=== PATIENT | female | born 1970 | race Caucasian/White ===

== ENCOUNTER 2017-11-15 10:28 | Emergency (ER) | payer OTHER ==
--- NOTE | 2017-11-15 10:41 | EDM.PDOC ---
ED HPI GENERAL MEDICAL PROBLEM - General Stated Complaint: FALL Time Seen by Provider: 11/15/17 10:36 - History of Present Illness INITIAL COMMENTS - FREE TEXT/NARRATIVE: HISTORY AND PHYSICAL: History of present illness: Patient 46-year-old white female presents status post right foot and ankle injury that occurred when she stepped off the porch she did hit her head there was no loss of consciousness she denies other trauma or concern she is not on blood thinners or antiplatelet therapy she's had no nausea no vomiting no neck pain no chest or abdominal pain or trauma other concerns she states this is strictly a mechanical fall Review of systems: As per history of present illness and below otherwise all systems reviewed and negative. Past medical history: As per history of present illness and as reviewed below otherwise noncontributory. Surgical history: As per history of present illness and as reviewed below otherwise noncontributory. Social history: No reported history of drug or alcohol abuse. Family history: As per history of present illness and as reviewed below otherwise noncontributory. Physical exam: HEENT: Atraumatic, normocephalic, pupils reactive, negative for conjunctival pallor or scleral icterus, mucous membranes moist, throat clear, neck supple, nontender, trachea midline. Lungs: Clear to auscultation, breath sounds equal bilaterally, chest nontender. Heart: S1S2, regular, negative for clicks, rubs, or JVD. Abdomen: Soft, nondistended, nontender. Negative for masses or hepatosplenomegaly. Negative for costovertebral tenderness. Pelvis: Stable nontender. Genitourinary: Deferred. Rectal: Deferred. Extremities: Patient has tenderness swelling in the region of the lateral malleolus of her right ankle Achilles tendon is intact there is no crepitation or point tenderness no proximal fibula tenderness Neuro: Awake, alert, oriented. Cranial nerves II through XII unremarkable. Cerebellum unremarkable. Motor and sensory unremarkable throughout. Exam nonfocal. Diagnostics: X-ray right foot/ankle Therapeutics: To be determined Impression: #1 acute right foot/ankle injury #2 minor head injury #3 observation status post fall Definitive disposition and diagnosis as appropriate pending reevaluation and review of above. - Related Data Allergies Allergy/AdvReac Type Severity Reaction Status Date / Time amoxicillin Allergy does not Verified 11/15/17 10:49 recall Home Meds: Home Meds . [No Known Home Meds] 11/15/17 [History] ED ROS GENERAL - Review of Systems Review Of Systems: ROS reveals no pertinent complaints other than HPI. ED EXAM, GENERAL - Physical Exam Exam: See Below (See dictation) Course - Vital Signs Last Recorded V/S: Last Vital Signs Temp 35.9 C 11/15/17 10:46 Pulse 99 11/15/17 10:46 Resp 12 11/15/17 10:46 BP 144/76 H 11/15/17 10:46 Pulse Ox 94 L 11/15/17 10:46 - Orders/Labs/Meds Orders: Active Orders 24 hr Category Date Time Status Ankle Min 3V Rt [CR] Stat Exams 11/15/17 11:24 Ordered Foot 2V Rt [CR] Stat Exams 11/15/17 11:24 Ordered Meds: Medications Discontinued Medications Generic Name Dose Route Start Last Admin Trade Name Freq PRN Reason Stop Dose Admin Hydrocodone Bitart/Acetaminophen 1 tab 11/15/17 12:14 [place] 325-10 Mg PO 11/15/17 12:15 ONETIME ONE Departure - Departure Time of Disposition: 12:15 Disposition: Home, Self-Care 01 Condition: Good Clinical Impression: Ankle fracture - Discharge Information Referrals: PCP,None [Primary Care Provider] - Additional Instructions: The following information is given to patients seen in the emergency department who are being discharged to home. This information is to outline your options for follow-up care. We provide all patients seen in our emergency department with a follow-up referral. The need for follow-up, as well as the timing and circumstances, are variable depending upon the specifics of your emergency department visit. If you don't have a primary care physician on staff, we will provide you with a referral. We always advise you to contact your personal physician following an emergency department visit to inform them of the circumstance of the visit and for follow-up with them and/or the need for any referrals to a consulting specialist. The emergency department will also refer you to a specialist when appropriate. This referral assures that you have the opportunity for followup care with a specialist. All of these measure are taken in an effort to provide you with optimal care, which includes your followup. Under all circumstances we always encourage you to contact your private physician who remains a resource for coordinating your care. When calling for followup care, please make the office aware that this follow-up is from your recent emergency room visit. If for any reason you are refused follow-up, please contact the [facility] emergency department at and asked to speak to the emergency department charge nurse. [facility] - [facility] Professional [address], [address] [place] [address] Posterior mold crutches as directed hydrocodone as prescribed call to schedule point with orthopedic clinic above return as needed as discussed - My Orders Last 24 Hours: My Active Orders 11/15/17 11:24 Ankle Min 3V Rt [CR] Stat Foot 2V Rt [CR] Stat - Assessment/Plan Last 24 Hours: My Active Orders 11/15/17 11:24 Ankle Min 3V Rt [CR] Stat Foot 2V Rt [CR] Stat
[2017-11-15] MEDS ORDERED: Acetaminophen/HYDROcodone 325-10 MG Tab PO ONE (12:14)
--- NOTE | 2017-11-15 12:58 | CR ---
EXAMINATION: Right ankle and right foot HISTORY: Pain COMPARISON: None TECHNIQUE: 3 views of the right ankle and 2 views of the right foot FINDINGS: There is an oblique nondisplaced distal fibular fracture identified with overlying soft tis nancy swelling. Ankle mortise and talar dome appear grossly preserved. Bone mineralization is normal. E jaguar osteoarthritic changes noted at the first MTP joint. IMPRESSION: Oblique nondisplaced distal fibular fracture.
== END 2017-11-15 12:43 | disposition home or self-care (01) ==
LOC: MW.ED 10:28
DX: S82.831A Other fracture of upper and lower end of right fibula, initial encounter for closed fracture (principal); S09.90XA Unspecified injury of head, initial encounter; Z88.1 Allergy status to other antibiotic agents; W19.XXXA Unspecified fall, initial encounter
CPT/HCPCS: 73610; 73620; 99283; A9270; 99282

== ENCOUNTER 2017-11-20 12:25 | Day surgery (SDC) | payer OTHER ==
[~2017-11-20 12:25] MED LIST: Acetaminophen/HYDROcodone 325-5 MG Tab PO PRN; Clindamycin Phosphate in D5W 900 MG in Premix Bag 1 BAG IV SCH; Lactated Ringers 1,000 ML IV SCH
[2017-11-20] MEDS ORDERED: Lidocaine 2% 5 ML SDV ONE (13:00)
[2017-11-20] MEDS ORDERED: Midazolam 1 MG/ML 2 ML SDV ONE (13:00)
[2017-11-20] MEDS ORDERED: Propofol 200 MG/20 ML SDV ONE (13:00)
[2017-11-20] MEDS ORDERED: Ketorolac 30 MG/ML SDV ONE (13:01)
[2017-11-20] MEDS ORDERED: Ondansetron 4 MG/2 ML SDV ONE (13:01)
[2017-11-20] MEDS ORDERED: HYDROmorphone 2 MG/ML Syringe ONE (13:01)
[2017-11-20] MEDS ORDERED: fentaNYL 250 MCG/5 ML SDV ONE (13:01)
--- NOTE | 2017-11-20 13:01 | PCM.PREANE ---
Preanesthetic Assessment - Anesthesia/Transfusion/Family Hx Anesthesia History: Prior Anesthesia Without Reaction Other Type of Anesthesia Reaction Comment: states gets emotional when waking up after anesthesia Family History of Anesthesia Reaction: No Transfusion History: No Prior Transfusion(s) - Review of Systems General: No Symptoms Pulmonary: No Symptoms Cardiovascular: No Symptoms Gastrointestinal: No Symptoms Neurological: No Symptoms Other: Reports: None - Physical Assessment NPO Status Date: 11/19/17 Height: 1.7 m Weight: 99.79 kg ASA Class: 2 Mental Status: Alert & Oriented x3 Airway Class: Mallampati = 2 Dentition: Reports: Broken Tooth/Teeth ROM/Head Extension: Full Lungs: Clear to Auscultation, Normal Respiratory Effort Cardiovascular: Regular Rate, Regular Rhythm - Allergies Allergies/Adverse Reactions: Allergies Allergy/AdvReac Type Severity Reaction Status Date / Time amoxicillin Allergy Rash Verified 11/19/17 11:58 - Anesthesia Plan Pre-Op Medication Ordered: None - Acknowledgements Anesthesia Type Planned: General Anesthesia Pt an Appropriate Candidate for the Planned Anesthesia: Yes Alternatives and Risks of Anesthesia Discussed w Pt/Guardian: Yes Pt/Guardian Understands and Agrees with Anesthesia Plan: Yes Additional Comments: PMH smoker, plan: GA-LMA PreAnesthesia Questionnaire HEENT History: Reports: None Gastrointestinal History: Reports: Other (See Below) Other Gastrointestinal History: occasional heartburn Genitourinary History: Reports: None 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: Musculoskeletal History: Reports: Other (See Below) Other Musculoskeletal History: presently has fx rt distal fibula Endocrine/Metabolic History: Reports: Obesity/BMI 30+ Dermatologic History: Reports: Psoriasis - Infectious Disease History Infectious Disease History: Reports: Chicken Pox, Mumps - Past Surgical History Head Surgeries/Procedures: Reports: None HEENT Surgical History: Reports: Oral Surgery Other GI Surgeries/Procedures: exploratory laparotomy Other Female Surgeries/Procedures: laparoscopy Male Surgical History: Reports: Other (See Below) - SUBSTANCE USE Smoking Status *Q: Current Every Day Smoker Tobacco Use Within Last Twelve Months: Cigarettes Days Per Week of Alcohol Use: 4 Number of Drinks Per Day: 2 Total Drinks Per Week: 8 Recreational Drug Use History: Yes Recreational Drug Type: Reports: Marijuana/Hashish, Methamphetamine - HOME MEDS Home Medications: Home Meds Hydrocodone/Acetaminophen [Hydrocodon-Acetaminoph 7.5-325] 1 tab PO ASDIRECTED PRN 11/19/17 [History] - CURRENT (IN HOUSE) MEDS Current Meds: Current Medications Hydrocodone Bitart/Acetaminophen ([place] 325-5 Mg) 1 - 2 tab PO Q4H PRN PRN Reason: Pain Lactated Ringer's (Ringers, Lactated) 1,000 mls @ 100 mls/hr IV ASDIRECTED VIOLET Clindamycin Phosphate 900 mg/ (Premix) 50 mls @ 100 mls/hr IV ONCALL VIOLET
[2017-11-20] MEDS ORDERED: HYDROmorphone 2 MG/ML Syringe IVPUSH ONE (14:45)
--- NOTE | 2017-11-20 15:24 | PCM.OPNOTE ---
- General Post-Op/Procedure Note Date of Surgery/Procedure: 11/20/17 Operative Procedure(s): ORIF L lateral malleolus Post-Op Diagnosis: L distal fibula fracture, unstable Anesthesia Technique: General LMA Primary Surgeon: Payal Mohan Grease Monkey: Mery Johnson in mLs: 10 Condition: Good Free Text/Narrative:: tt=29 min #[id number]
[2017-11-20] MEDS: fentaNYL 100 MCG/2 ML SDV IVPUSH PRN ×2 (15:59→16:06)
--- NOTE | 2017-11-20 16:01 | PCM.POSTAN ---
POST ANESTHESIA ASSESSMENT - MENTAL STATUS Mental Status: Alert, Oriented - RESPIRATORY Respiratory Status: Respiratory Rate WNL, Airway Patent, O2 Saturation Stable - CARDIOVASCULAR CV Status: Pulse Rate WNL, Blood Pressure Stable - GASTROINTESTINAL GI Status: No Symptoms - POST OP HYDRATION Hydration Status: Adequate & Stable
--- NOTE | 2017-11-20 16:38 | PCM48HPAN ---
Post Anesthesia Note - EVALUATION WITHIN 48HRS OF ANESTHETIC Vital Signs in Normal Range: Yes Patient Participated in Evaluation: Yes Respiratory Function Stable: Yes Airway Patent: Yes Cardiovascular Function Stable: Yes Hydration Status Stable: Yes Pain Control Satisfactory: Yes Nausea and Vomiting Control Satisfactory: Yes Mental Status Recovered: Yes
--- NOTE | 2017-11-20 20:53 | OR ---
SURGEON: Payal Mohan MD DATE OF PROCEDURE: 11/20/2017 PREOPERATIVE DIAGNOSIS: Left distal fibula fracture, unstable. POSTOPERATIVE DIAGNOSIS: Left distal fibula fracture, unstable. PROCEDURE: Open reduction and internal fixation of left distal fibula. PLANT AND EQUIPMENT WORKER: Mery Johnson PA-C. ANESTHESIA: General. ESTIMATED BLOOD LOSS: 10 mL. TOURNIQUET TIME: 29 minutes. COMPLICATIONS: None. DVT PROPHYLAXIS: PAS boot to the nonoperative leg. IMPLANTS USED: [place] four hole distal fibula plate with combination of 3.5 mm locking and nonlocking screws. BRIEF HISTORY: Loretta is a 47-year-old female, who sustained an injury to her left ankle after a fall on the ice. X-rays showed a fracture of the distal fibula. The gravity stress view did show widening of the ankle mortise. Due to the unstable nature of the injury, I did recommend surgical intervention. The risks and goals of procedure were discussed with the patient and were documented preoperatively. She agreed to proceed. DESCRIPTION OF PROCEDURE: The patient was properly identified and brought to the operating room. She was transferred from the OR cart and placed on the operating table in a supine position. General anesthesia was administered. After adequate anesthesia was obtained, a well-padded tourniquet was applied to the left lower extremity. The left lower extremity was then prepped in standard fashion using ChloraPrep solution. It was then sterilely draped. A time-out was performed to ensure correct site and procedure. Preoperative antibiotics were given. The surgical site had been marked preoperatively. An Esmarch was used to exsanguinate the left lower extremity and the tourniquet was inflated to 250 mmHg. An incision was made over the lateral aspect of the ankle. Subcutaneous tissues were incised down to level of the bone. Care was taken to look for the superficial peroneal nerve, however, this was not encountered. The fracture was identified. This was slightly oblique in nature. It was held open and copiously irrigated to remove the fracture hematoma. A bone reduction clamp was then used to reduce the fracture and hold it in position. An interfragmentary screw was then placed in standard lag fashion. This provided good provisional fixation for the fracture. The distal fibula plate was then contoured to the bone. It was felt that a four hole would give us adequate fixation proximally. 3.5 mm locking screws were used distally and 3.5 mm nonlocking screws were used proximally. I did use a 3.5 mm nonlocking screw at the distal most hole to help contour the plate better to the bone. It had good purchase within the bone and I elected to leave it in place. I did leave the 2 screws open over the fracture site as there was some comminution and I did not feel that there would be adequate screw purchase. Final C-arm images confirmed acceptable placement of the plate and screws. The ankle mortise was symmetric. An external rotation stress view under live fluoroscopy did not show any widening of the ankle mortise or syndesmosis. I also placed a bone hook over the distal fibula and pulled laterally under live fluoroscopy. No widening of the syndesmosis was noted. The wounds were then copiously irrigated with saline solution. The deep tissues were closed with 0 Vicryl. 2-0 Monocryl was used to close the subcutaneous tissues and the skin was closed with kavon. Tourniquet was deflated prior to final wound closure. No significant bleeding was noted. Xeroform gauze was placed over the wound and bulky dressing was applied. She was then placed in a well-padded posterior splint with medial and lateral stabilizing slabs. She was awakened from her anesthetic and transferred back to the operating room cart. She was brought to recovery room in stable condition. All needle and sponge counts were correct. MAGALY / LIZZY /[id number]
--- NOTE | 2017-11-21 09:58 | CR ---
EXAMINATION: Right ankle HISTORY: Fracture COMPARISON: 11/19/2017 TECHNIQUE: 5 fluoroscopic images provided FINDINGS/IMPRESSION: Operative control films demonstrate screw and plate fixation of a distal fibular fracture.
--- NOTE | 2017-12-13 07:41 | OR ---
SURGEON: Payal Mohan MD DATE OF PROCEDURE: 11/20/2017 ADDENDUM: Addendum to an operative report that was dictated on 11/20/2017. The operative note was dictated as a left-sided fracture in error. The actual surgery and procedure were performed on the right distal fibula. MAGALY / LIZZY /[id number]
== END 2017-11-20 17:55 | disposition home or self-care (01) ==
LOC: MW.SDS 12:25
PROVIDERS: ATTEND Orthopaedic Surgery
DX: S82.831A Other fracture of upper and lower end of right fibula, initial encounter for closed fracture (principal); Z88.1 Allergy status to other antibiotic agents; Z91.018 Allergy to other foods; Z79.899 Other long term (current) drug therapy; F17.210 Nicotine dependence, cigarettes, uncomplicated; W18.31XA Fall on same level due to stepping on an object, initial encounter
CPT/HCPCS: 27792; 76000; 81025; A9270; C1713; J1170; J1885; J2250; J2405; J3010; J7120; 01480; J2704

== ENCOUNTER 2017-11-23 09:35 | Emergency (ER) | payer OTHER ==
--- NOTE | 2017-11-23 09:56 | EDM.PDOC ---
ED HPI GENERAL MEDICAL PROBLEM - General Chief Complaint: Lower Extremity Injury/Pain Stated Complaint: RT FOOT HURTS Time Seen by Provider: 11/23/17 09:45 - History of Present Illness INITIAL COMMENTS - FREE TEXT/NARRATIVE: HISTORY AND PHYSICAL: History of present illness: Patient's 47-year-old female status post right ankle surgery comes in with pain and discomfort since last night and feels that her splint may be too tight. She states she has been unable to sleep secondary to pain. She denies any new trauma or other concern states she has been compliant with staying off keeping it elevated and her pain medicine Review of systems: As per history of present illness and below otherwise all systems reviewed and negative. Past medical history: As per history of present illness and as reviewed below otherwise noncontributory. Surgical history: As per history of present illness and as reviewed below otherwise noncontributory. Social history: No reported history of drug or alcohol abuse. Family history: As per history of present illness and as reviewed below otherwise noncontributory. Physical exam: HEENT: Atraumatic, normocephalic, pupils reactive, negative for conjunctival pallor or scleral icterus, mucous membranes moist, throat clear, neck supple, nontender, trachea midline. Lungs: Clear to auscultation, breath sounds equal bilaterally, chest nontender. Heart: S1S2, regular, negative for clicks, rubs, or JVD. Abdomen: Soft, nondistended, nontender. Negative for masses or hepatosplenomegaly. Negative for costovertebral tenderness. Pelvis: Stable nontender. Genitourinary: Deferred. Rectal: Deferred. Extremities: Mold noted right lower extremity Ant wrap was removed anterior component of splint exposed underlying skin without breakdown or neurovascular changes splint is noted to be firmly in place. Neuro: Awake, alert, oriented. Cranial nerves II through XII unremarkable. Cerebellum unremarkable. Motor and sensory unremarkable throughout. Exam nonfocal. Diagnostics: None Therapeutics: Splint was removed wound is well in appearance neurovascular exams unremarkable reapplication of a posterior mold was applied patient has marked improvement of symptoms Impression: #1 postoperative pain Definitive disposition and diagnosis as appropriate pending reevaluation and review of above. 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: Musculoskeletal History: Reports: Other (See Below) Other Musculoskeletal History: presently has fx rt distal fibula Endocrine/Metabolic History: Reports: Obesity/BMI 30+ Dermatologic History: Reports: Psoriasis - Infectious Disease History Infectious Disease History: Reports: Chicken Pox, Mumps - Past Surgical History Head Surgeries/Procedures: Reports: None HEENT Surgical History: Reports: Oral Surgery Other GI Surgeries/Procedures: exploratory laparotomy Other Female Surgeries/Procedures: laparoscopy Male Surgical History: Reports: Other (See Below) Social & Family History - Tobacco Use Smoking Status *Q: Current Every Day Smoker Years of Tobacco use: 30 Packs/Tins Daily: 0.5 - Caffeine Use Caffeine Use: Reports: Coffee, Energy Drinks, Soda, Tea - Alcohol Use Days Per Week of Alcohol Use: 4 Number of Drinks Per Day: 2 Total Drinks Per Week: 8 - Recreational Drug Use Recreational Drug Use: Yes Drug Use in Last 12 Months: Yes Recreational Drug Type: Reports: Marijuana/Hashish, Methamphetamine Recreational Drug Use Frequency: Not Used In Over 6 Months Review of Systems - Review of Systems Review Of Systems: ROS reveals no pertinent complaints other than HPI. ED EXAM, GENERAL - Physical Exam Exam: See Below (See dictation) Course - Vital Signs Last Recorded V/S: Last Vital Signs Temp 35.8 C 11/23/17 09:46 Pulse 99 11/23/17 09:46 Resp 20 11/23/17 09:46 BP 196/104 H 11/23/17 09:46 Pulse Ox 95 11/23/17 09:46 Departure - Departure Time of Disposition: 10:49 Disposition: Home, Self-Care 01 Condition: Good Clinical Impression: Postoperative pain of extremity, Encounter for medical screening examination - Discharge Information Referrals: PCP,None [Primary Care Provider] - Forms: ED Department Discharge Additional Instructions: The following information is given to patients seen in the emergency department who are being discharged to home. This information is to outline your options for follow-up care. We provide all patients seen in our emergency department with a follow-up referral. The need for follow-up, as well as the timing and circumstances, are variable depending upon the specifics of your emergency department visit. If you don't have a primary care physician on staff, we will provide you with a referral. We always advise you to contact your personal physician following an emergency department visit to inform them of the circumstance of the visit and for follow-up with them and/or the need for any referrals to a consulting specialist. The emergency department will also refer you to a specialist when appropriate. This referral assures that you have the opportunity for followup care with a specialist. All of these measure are taken in an effort to provide you with optimal care, which includes your followup. Under all circumstances we always encourage you to contact your private physician who remains a resource for coordinating your care. When calling for followup care, please make the office aware that this follow-up is from your recent emergency room visit. If for any reason you are refused follow-up, please contact the [facility] emergency department at and asked to speak to the emergency department charge nurse. [facility] - Orthopedic Clinic Professional Building [address] [place] [address], [address] [place] [address] Follow-up orthopedic clinic call for appointment and reevaluation continue pain medication immobilization and elevation as discussed return as needed as discussed
== END 2017-11-23 11:27 | disposition home or self-care (01) ==
LOC: MW.ED 09:35
DX: M25.571 Pain in right ankle and joints of right foot (principal); G89.18 Other acute postprocedural pain; F17.210 Nicotine dependence, cigarettes, uncomplicated; Z88.1 Allergy status to other antibiotic agents
CPT/HCPCS: 99283

== ENCOUNTER 2018-03-11 11:59 | Emergency (ER) | payer OTHER ==
--- NOTE | 2018-03-11 12:48 | EDM.PDOC ---
ED HPI GENERAL MEDICAL PROBLEM - General Chief Complaint: ENT Problem Stated Complaint: LT EAR HURTS Time Seen by Provider: 03/11/18 12:43 Source of Information: Reports: Patient History Limitations: Reports: No Limitations - History of Present Illness INITIAL COMMENTS - FREE TEXT/NARRATIVE: History of present illness: []Patient has a history of psoriasis in her ears and she thinks she scratched her and it became infected on her left. She has severe pain denies any fevers or chills or any other symptoms Review of systems: As per history of present illness and below otherwise all systems reviewed and negative. Past medical history: As per history of present illness and as reviewed below otherwise noncontributory. Surgical history: As per history of present illness and as reviewed below otherwise noncontributory. Social history: No reported history of drug or alcohol abuse. Family history: As per history of present illness and as reviewed below otherwise noncontributory. Physical exam: General: Well developed, well nourished in NAD HEENT: Atraumatic, normocephalic, pupils reactive, negative for conjunctival pallor or scleral icterus, mucous membranes moist, throat clear, neck supple, nontender, trachea midline. Left TM with erythema and psoriasis rash inside the EAC without signs of infection Lungs: Clear to auscultation, breath sounds equal bilaterally, chest nontender. Heart: S1S2, regular, negative for clicks, rubs, or JVD. Abdomen: Soft, nondistended, nontender. Negative for masses or hepatosplenomegaly. Negative for costovertebral tenderness. Pelvis: Stable nontender. Genitourinary: Deferred. Rectal: Deferred. Extremities: Atraumatic, negative for cords or calf pain. Neurovascular unremarkable. Neuro: Awake, alert, oriented. Cranial nerves II through XII unremarkable. Cerebellum unremarkable. Motor and sensory unremarkable throughout. Exam nonfocal. Diagnostics: [] Therapeutics: []Motrin Impression: []Left otitis media Plan: []Z-Donovan Definitive disposition and diagnosis as appropriate pending reevaluation and review of above. 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: Musculoskeletal History: Reports: Other (See Below) Other Musculoskeletal History: presently has fx rt distal fibula Endocrine/Metabolic History: Reports: Obesity/BMI 30+ Dermatologic History: Reports: Psoriasis - Infectious Disease History Infectious Disease History: Reports: Chicken Pox - Past Surgical History Head Surgeries/Procedures: Reports: None HEENT Surgical History: Reports: Oral Surgery Other GI Surgeries/Procedures: exploratory laparotomy Other Female Surgeries/Procedures: laparoscopy Social & Family History - Family History Family Medical History: Noncontributory - Tobacco Use Smoking Status *Q: Current Every Day Smoker Years of Tobacco use: 30 Packs/Tins Daily: 1 - Caffeine Use Caffeine Use: Reports: Energy Drinks Other Caffeine Use: occasional Caffeine Use Comment: 1 cup per day - Recreational Drug Use Recreational Drug Use: No ED ROS ENT - Review of Systems Review Of Systems: See Below (See history of present illness) ED EXAM, ENT - Physical Exam Exam: See Below (See history of present illness) Course - Vital Signs Last Recorded V/S: Last Vital Signs Temp 97.1 F 03/11/18 13:00 Pulse 108 H 03/11/18 13:00 Resp 18 03/11/18 13:00 BP 133/101 H 03/11/18 13:00 Pulse Ox 98 03/11/18 13:00 - Orders/Labs/Meds Meds: Medications Discontinued Medications Generic Name Dose Route Start Last Admin Trade Name Bony PRN Reason Stop Dose Admin Ibuprofen 800 mg 03/11/18 12:54 03/11/18 12:59 Motrin PO 03/11/18 12:55 800 mg ONETIME ONE Administration Departure - Departure Time of Disposition: 12:47 Disposition: Home, Self-Care 01 Condition: Good Clinical Impression: Left otitis media Qualifiers: Otitis media type: unspecified Qualified Code(s): H66.92 - Otitis media, unspecified, left ear - Discharge Information Prescriptions: Azithromycin [Zithromax] 250 mg PO DAILY #6 tab Instructions: Otitis Media, Adult, [id number] Referrals: PCP,None [Primary Care Provider] - Forms: ED Department Discharge Additional Instructions: The following information is given to patients seen in the emergency department who are being discharged to home. This information is to outline your options for follow-up care. We provide all patients seen in our emergency department with a follow-up referral. The need for follow-up, as well as the timing and circumstances, are variable depending upon the specifics of your emergency department visit. If you don't have a primary care physician on staff, we will provide you with a referral. We always advise you to contact your personal physician following an emergency department visit to inform them of the circumstance of the visit and for follow-up with them and/or the need for any referrals to a consulting specialist. The emergency department will also refer you to a specialist when appropriate. This referral assures that you have the opportunity for follow-up care with a specialist. All of these measure are taken in an effort to provide you with optimal care, which includes your follow-up. Under all circumstances we always encourage you to contact your private physician who remains a resource for coordinating your care. When calling for follow-up care, please make the office aware that this follow-up is from your recent emergency room visit. If for any reason you are refused follow-up, please contact the [facility] Emergency Department at and asked to speak to the emergency department charge nurse. Zithromax as directed take ibuprofen or Tylenol for pain warm packs [facility] [address] [place] [id number]
[2018-03-11] MEDS ORDERED: Ibuprofen 800 MG Tab PO ONE (12:54)
== END 2018-03-11 13:04 | disposition home or self-care (01) ==
LOC: MW.ED 11:59
DX: H66.92 Otitis media, unspecified, left ear (principal); F17.210 Nicotine dependence, cigarettes, uncomplicated; E66.9 Obesity, unspecified; Z88.1 Allergy status to other antibiotic agents; Z91.018 Allergy to other foods
CPT/HCPCS: 99282; A9270; 99283